=== PATIENT | male | born 2005 | race Caucasian/White ===

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

== ENCOUNTER → 2025-01-28 | Outpatient (REF) | payer OTHER ==
[~2025-01-28] MED LIST changes: +ARIP10TA63 PO; -ARIP1TAB PO; +BENZ2TAB48 PO; -BENZ2TAB5 PO; -FLUO10TA2; +FLUO1TAB; +RISP-105; -RISP1TAB3
[2025-01-28 12:15] LABS: INR 0.98
[2025-01-28 12:19] LABS: BASO # 0.0 10^3/uL (0.0-0.2); BASO % 0.5 % (0.0-1.0); EOS # 0.1 10^3/uL (0.0-0.5); EOS % 1.4 % (0.0-3.0); LYMPH # 2.7 10^3/uL (1.5-5.0); LYMPH % 37.2 % (24.0-44.0); MONO # 0.4 10^3/uL (0.0-0.8); MONO % 5.6 % (2.0-8.0); NEUTROPHILS # 4.1 10^3/uL (1.5-8.5); NEUTROPHILS % 55.0 % (36.0-66.0); PLATELET COUNT, AUTOMATED 297 10^3/uL (150-450)
[2025-01-28 12:20] LABS: ALT/SGPT 144 U/L (7.0-40); AST/SGOT 70 U/L (<34); CALCIUM LEVEL 9.5 MG/DL (8.5-10.1); CARBON DIOXIDE LEVEL 29 MMOL/L (20-31); CHLORIDE LEVEL 101 MMOL/L (98-107); CHOLESTEROL LEVEL 218 MG/DL (<200); CHOLESTEROL RISK RATIO 6.21 (<5); CREATININE FOR GFR 1.13 MG/DL (0.70-1.30); GLOMERULAR FILTRATION RATE > 90.0 (>60); LDL CHOLESTEROL 119.1 MG/DL (<100); NON-HDL-C 182.9 MG/DL; POTASSIUM SERUM 4.1 MMOL/L (3.5-5.1); SODIUM LEVEL 141 MMOL/L (136-145); TRIGLYCERIDES LEVEL 319 MG/DL (<150)
== END ==
LOC: M LAB REF 11:53
PROVIDERS: ATTEND Family Medicine Addiction Medicine
DX: K75.81 Nonalcoholic steatohepatitis (NASH) (principal)

== ENCOUNTER 2025-03-08 14:09 | Inpatient (IN) | payer OTHER ==
[~2025-03-08] VITALS: Ht 185.4 cm; Wt 131.6 kg
[2025-03-08 10:36] VITALS: BP 112/60; TEMP 98.2; O2SAT 98
[~2025-03-08 14:09] MED LIST changes: -CLON-412; +CLON-412 PO
[2025-03-08] MEDS ORDERED: MED REC IN PROGRESS XX SCH (18:10)
[2025-03-08] MEDS ORDERED: ACETAMINOPHEN 325 MG TAB PO PRN (18:20)
[2025-03-08] MEDS ORDERED: MOM 30 ML SUSPENSION UDC PO PRN (18:20)
[2025-03-08] MEDS ORDERED: MAALOX 30 ML SUSP *UDC PO PRN (18:20)
[2025-03-08] MEDS ORDERED: IBUPROFEN 400 MG TAB PO PRN (18:20)
[2025-03-08 18:24] LABS: PLATELET COUNT, AUTOMATED 258 10^3/uL (150-450)
[2025-03-08] MEDS ORDERED: ARIP1TAB10 PO (18:26)
[2025-03-08] MEDS ORDERED: ARIP1TAB6 PO (18:26)
[2025-03-08] MEDS ORDERED: FLUO40CA PO (18:26)
[2025-03-08] MEDS ORDERED: HOME MED LIST COMPLETE! XX SCH (18:30)
[2025-03-08 18:52] LABS: SALICYLATE LEVEL < 3.0 MG/DL (<30)
[2025-03-08 18:53] LABS: ALT/SGPT 104 U/L (7.0-40); AST/SGOT 40 U/L (<34); CALCIUM LEVEL 9.0 MG/DL (8.5-10.1); CARBON DIOXIDE LEVEL 30 MMOL/L (20-31); CHLORIDE LEVEL 102 MMOL/L (98-107); CREATININE FOR GFR 1.05 MG/DL (0.70-1.30); GLOMERULAR FILTRATION RATE > 90.0 (>60); POTASSIUM SERUM 4.0 MMOL/L (3.5-5.1); SODIUM LEVEL 141 MMOL/L (136-145)
[2025-03-08 18:54] LABS: ETHYL ALCOHOL (ETHANOL) < 0.003 % (0.000-0.010)
[2025-03-08 21:09] LABS: KETONE, URINE AUTO RFX NEGATIVE (NEGATIVE); MUCUS, URINE RFX SMALL (NEGATIVE); NITRITE, URINE AUTO RFX NEGATIVE (NEGATIVE); RBC, URINE AUTO RFX 0 /HPF (0-3); SQUAM EPITHELIAL CELL UR AURFX 0 /HPF (0-6); WBC, URINE AUTO RFX 4 /HPF (0-3)
[2025-03-08 21:31] LABS: LEUKOCYTE ESTERASE UR AUTO RFX TRACE (NEGATIVE)
[2025-03-08 21:32] LABS: AMPHETAMINES LEVEL URINE NEGATIVE (NEGATIVE); BARBITURATES URINE NEGATIVE (NEGATIVE); BENZODIAZEPINES URINE NEGATIVE (NEGATIVE); COCAINE METABOLITE URINE NEGATIVE (NEGATIVE); METHADONE URINE NEGATIVE (NEGATIVE)
[2025-03-08 21:33] LABS: CANNABINOIDS URINE NEGATIVE (NEGATIVE); OPIATES URINE NEGATIVE (NEGATIVE); PHENCYCLIDINE URINE NEGATIVE (NEGATIVE)
[2025-03-09 06:51] VITALS: BP 110/56; TEMP 96.8; O2SAT 98
[2025-03-09 14:35] VITALS: BP 128/60
[2025-03-09 14:41] VITALS: BP 128/60; TEMP 97.8; O2SAT 100
[2025-03-09] MEDS: BENZTROPINE 2 MG TAB PO SCH (21:00)
[2025-03-10 06:20] VITALS: BP 110/63; TEMP 97.3; O2SAT 99
[2025-03-10] MEDS: METHYLPHENIDATE ER 18 MG TABLET PO SCH (09:36)
[2025-03-10] MEDS: FLUoxetine 20 MG CAP PO SCH (09:36)
[2025-03-10 15:21] VITALS: BP 135/67; TEMP 98.2; O2SAT 100
[2025-03-10] MEDS: traZODone 50 MG TAB PO PRN (22:15)
[2025-03-11 15:23] VITALS: BP 112/60; TEMP 97.6; O2SAT 98
[2025-03-12 06:42] VITALS: BP 116/59; TEMP 97.3; O2SAT 100
[2025-03-12] MEDS: OLANZapine 5 MG TAB PO PRN (19:53)
[2025-03-13 15:00] VITALS: BP 114/59; TEMP 98; O2SAT 99
[2025-03-13] MEDS ORDERED: TRAZ-252 PO (22:06)
[2025-03-13] MEDS ORDERED: HYDR-3363 PO (22:06)
[2025-03-14 06:00] VITALS: BP 130/57; TEMP 97.1; O2SAT 97
[2025-03-14 10:02] VITALS: BP 110/67
[2025-03-14] MEDS ORDERED: METH54TA PO (14:56)
== END 2025-03-14 12:20 | disposition home or self-care (01) | DRG 885 ==
LOC: EDBD 14:09 → M ED 14:09 → M ED INP 18:16 → M PSY 22:34
PROVIDERS: ADMIT Psychiatry & Neurology Neurology; ATTEND General Practice
DX: F31.63 Bipolar disorder, current episode mixed, severe, without psychotic features (principal); F41.1 Generalized anxiety disorder; F79 Unspecified intellectual disabilities; F90.9 Attention-deficit hyperactivity disorder, unspecified type; I10 Essential (primary) hypertension; E66.9 Obesity, unspecified; Z68.38 Body mass index [BMI] 38.0-38.9, adult; Z79.899 Other long term (current) drug therapy